=== PATIENT | male | born 1965 | race Two or more races ===

== ENCOUNTER 2021-10-12 21:34 | Emergency (ER) | payer OTHER ==
[~2021-10-12] VITALS: Ht 170.2 cm; Wt 74.8 kg
--- NOTE | 2021-10-12 21:43 | NUR ---
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 PATIENT PLACED COMFORTABLY ON ER BED. VITALS CHECKED.
--- NOTE | 2021-10-12 22:29 | NUR ---
COVID ANTIGEN SWAB SENT TO LAB
--- NOTE | 2021-10-12 22:32 | NUR ---
CXR DONE AT BEDSIDE
[2021-10-12 22:53] LABS: BASOPHILS % (AUTO) 0.8 % (0.0-2.0); EOSINOPHILS % (AUTO) 2.8 % (0.0-6.0); HEMATOCRIT 27 % (39-51); HEMOGLOBIN 9.2 g/dL (13.5-17.5); LYMPHOCYTES # (AUTO) 1.4 K/uL (0.8-4.8); LYMPHOCYTES % (AUTO) 24.7 % (20.0-44.0); MEAN CORPUSCULAR HGB CONC 34 g/dl (31.0-36.0); MEAN CORPUSCULAR VOLUME 78 fL (80-96); MONOCYTES # (AUTO) 0.6 K/uL (0.1-1.30); MONOCYTES % (AUTO) 11.4 % (2.0-12.0); NEUTROPHILS # (AUTO) 3.4 K/uL (1.8-8.9); NEUTROPHILS % (AUTO) 60.3 % (43.0-81.0); PLATELET COUNT (AUTO) 213 K/uL (150-450); RED BLOOD CELL COUNT(AUTO) 3.48 MIL/uL (4.5-6.0); WHITE BLOOD COUNT (AUTO) 5.6 K/uL (4.3-11.0)
--- NOTE | 2021-10-12 23:09 | NUR ---
CALLED RAY FOR IMAGES FOLLOWUP
[2021-10-12 23:29] LABS: CALCIUM, SERUM 8.3 mg/dL (8.5-10.1); CARBON DIOXIDE 23 mmol/L (21-32); CREATININE 2.1 mg/dL (0.6-1.3); GLUCOSE 148 mg/dL (74-106); UREA NITROGEN, BLOOD 23 mg/dL (7-18)
[2021-10-13 00:16] LABS: CHLORIDE 100 mmol/L (98-107); POTASSIUM 3.5 mmol/L (3.5-5.1); SODIUM SERUM 134 mmol/L (136-145)
--- NOTE | 2021-10-13 00:20 | NUR ---
DR BOWDEN - [facility] PAGED PER DR GARCIA.
--- NOTE | 2021-10-13 01:12 | NUR ---
AMBULANCE AUTH# [id number]
--- NOTE | 2021-10-13 03:46 | NUR ---
TELE 604 NUMBER FOR REPORT: [phone] ACCEPTING: DR. WILKINSON PLEASE CALL CURR[employer]UL[facility] DESIGNER @ [facility] FOR ETA [phone]
--- NOTE | 2021-10-13 03:51 | NUR ---
[facility] CALLED FOR TRANSPORT. NO ALS AVAILABLE TODAY.
--- NOTE | 2021-10-13 03:52 | NUR ---
[facility] CALLED FOR ALS TRANSPORT. NO ALS AVAILABLE.
--- NOTE | 2021-10-13 03:57 | NUR ---
[facility] CALLED FOR ALS TRANSPORT. ETA [phone]
--- NOTE | 2021-10-13 04:12 | NUR ---
REPORT GIVEN TO TAINA PATIÑO
--- NOTE | 2021-10-13 07:20 | NUR ---
ASSUME PT CARE. RESTING IN BED. STABLE VITALS. AWAITING TRANASFER TO [facility].
[2021-10-13 09:55] VITALS: BP 165/92
--- NOTE | 2021-10-13 09:55 | NUR ---
PT SLEEPING, EASILY AROUSABLE. STABLE VITALS. WILL CONTINUE TO MONITOR.
--- NOTE | 2021-10-13 10:01 | NUR ---
[facility] ETA UPDATE 1005.
--- NOTE | 2021-10-13 10:28 | NUR ---
TRANSPORTED TO [facility] IN STABLE CONDITION.
== END 2021-10-13 10:29 | disposition short-term general hospital (02) ==
LOC: ER 21:38
DX: R07.9 Chest pain, unspecified (principal); R94.31 Abnormal electrocardiogram [ECG] [EKG]; I10 Essential (primary) hypertension; E11.9 Type 2 diabetes mellitus without complications; Z20.822 Contact with and (suspected) exposure to COVID-19
CPT/HCPCS: 36415; 71045; 80048; 84484; 85025; 87081; 87426; 93005; 99285; C9803